=== PATIENT | female | born 1990 | race Caucasian/White ===

== ENCOUNTER 2022-04-04 12:36 | Emergency (ER) | payer SELFPAY ==
[~2022-04-04] VITALS: Ht 162.6 cm; Wt 68.0 kg
[2022-04-04] MEDS ORDERED: AMOX1TAB16 PO (15:54)
[2022-04-04] MEDS ORDERED: IBUP-2029 PO (15:54)
[2022-04-04] MEDS ORDERED: SULF1TAB48 PO (15:54)
[2022-04-04 15:56] VITALS: BP 116/48
[2022-04-04] MEDS ORDERED: IBUPROFEN 600MG TABLET PO STA (15:56)
== END 2022-04-04 16:21 | disposition home or self-care (01) ==
LOC: ER 12:36
DX: L02.31 Cutaneous abscess of buttock (principal)
CPT/HCPCS: 99283